=== PATIENT | female | born 1965 | race Caucasian/White ===

== ENCOUNTER 2016-09-12 06:31 | Day surgery (SDC) | payer OTHER ==
[~2016-09-12 06:31] MED LIST: Dextrose 5%-0.45% NaCl 1,000 ML IV SCH; Midazolam 1 MG/ML 2 ML SDV ONE; Sodium Chloride 0.9% 10 ML Syringe FLUSH PRN; fentaNYL 100 MCG/2 ML SDV ONE
[2016-09-12] MEDS ORDERED: fentaNYL 100 MCG/2 ML SDV IV ONE ×3 (06:50→07:31)
[2016-09-12] MEDS ORDERED: Midazolam 1 MG/ML 2 ML SDV IV ONE ×3 (06:50→07:32)
--- NOTE | 2016-09-12 08:11 | OR ---
DATE: 09/12/2016 PROCEDURES: Esophagogastroduodenoscopy and multiple pinch biopsies. INSTRUMENT USED: GIF-H180 Olympus video panendoscope. PREMEDICATIONS: No oral topical anesthesia used. Fentanyl 100 mcg intravenous, Versed 2 mg intravenous. The procedure was done under pulse oximetry, BP recording and cardiac surgeon. INDICATION: The patient with unexplained iron-deficiency anemia. Esophagogastroduodenoscopy is performed for detection of any active erosive lesions, Felix esophagus and/or malignancy also under consideration, H. pylori status to be determined, small bowel biopsies to be taken for celiac disease if indicated, endoscopic hemostasis therapy if needed. DESCRIPTION OF PROCEDURE: The scope was passed with ease. Adequate visualization of the esophagus was made from proximal to distal areas. No upper esophageal lesions identified. No distal esophageal stricture. No uphill or downhill esophageal varices. No Tamika-Connelly tear. No evidence of erosive esophagitis by [place] criteria. No esophageal polyp or tumor mass identified. Z-line was seen at around 40 cm distal to the oral verge, configuration consistent with grade 1 by ZAP classification. No proximal gastric varices noted. Gastric fundus examination by retroflexion showed no polypoid lesions. No gastric ulcer, malignant mass, or vascular ectasia identified. Scattered gastric antral erosions were noted without bleeding from them. Duodenal bulb was normal old. Visualized 2nd part of the duodenum was unremarkable. Multiple pinch biopsies were taken from the gastric antrum and proximal body and sent for PyloriTek test for H. pylori, and if negative in an hour, tissue is to be sent for histopathology. No bleeding was noted from any of the visualized areas at the completion of examination. Photographs were taken of the duodenal bulb, gastric antrum, fundus, and distal esophagus. IMPRESSION: Gastric antral erosions. The patient tolerated the procedure well. [facility] /[id number]
[2016-09-12 10:20] VITALS: BP 136/68
== END 2016-09-12 09:22 | disposition home or self-care (01) ==
LOC: DL.ENDO 06:31
PROVIDERS: ATTEND Internal Medicine Gastroenterology
DX: K29.50 Unspecified chronic gastritis without bleeding (principal); D50.9 Iron deficiency anemia, unspecified; K25.9 Gastric ulcer, unspecified as acute or chronic, without hemorrhage or perforation; I10 Essential (primary) hypertension; E66.09 Other obesity due to excess calories
CPT/HCPCS: 43239; 87077; J2250; J3010; J7042

== ENCOUNTER 2016-09-17 06:28 | Day surgery (SDC) | payer OTHER ==
[2016-09-17] MEDS ORDERED: fentaNYL 100 MCG/2 ML SDV IV ONE ×5 (07:20→15:40)
[2016-09-17] MEDS ORDERED: Midazolam 1 MG/ML 2 ML SDV IV ONE ×7 (07:21→15:40)
[2016-09-17 10:18] VITALS: BP 148/84
--- NOTE | 2016-09-17 10:51 | OR ---
DATE: 09/17/2016 PROCEDURE: Total colonoscopy. INSTRUMENT USED: CF-H180AL Olympus video colonoscope. PREMEDICATIONS: Fentanyl 150 mcg intravenous, Versed 4 mg intravenous. Nasal O2 cannula. The procedure was done under pulse oximetry, BP recording, and vehicle monitor technician. INDICATION: The patient with unexplained iron-deficiency anemia. Colonoscopic examination is done for detection of any polypoid lesions and removal, endoscopic hemostasis therapy if needed. DESCRIPTION OF PROCEDURE: Initial rectal exam was unremarkable. Rigid anoscopy was normal. The colonoscope was passed with ease. Numerous scattered diverticula were noted along with deformity involving the distal left colon. The scope was passed with ease up to the ileocecal area, photographs were taken of the normal-appearing cecum, identified by double-bulged ileocecal folds. No bleeding was noted from any of the visualized areas at the commencement of the examination. No stricture. No vascular ectasia. No large isolated ulcerations seen. No evidence of diffuse inflammatory bowel disease in the form of friability, contact bleeding, or ulcerations. No polyp or tumor mass identified. Probing the proximal sides of folds and flexures, using adequate distention and clearing of the stool material, withdrawal of the scope was made, cecum to rectum time over 6 minutes no bleeding was noted from any of the visualized areas at the completion of examination. IMPRESSION: Diverticulosis. The patient tolerated the procedure well. [facility] /[id number]
== END 2016-09-17 09:42 | disposition home or self-care (01) ==
LOC: DL.ENDO 06:28
PROVIDERS: ATTEND Internal Medicine Gastroenterology
DX: K57.30 Diverticulosis of large intestine without perforation or abscess without bleeding (principal); D50.9 Iron deficiency anemia, unspecified; I10 Essential (primary) hypertension; E66.9 Obesity, unspecified; Z80.0 Family history of malignant neoplasm of digestive organs; Z79.899 Other long term (current) drug therapy
CPT/HCPCS: 45378; J2250; J3010; J7042